=== PATIENT | male | born 1965 | race Caucasian/White ===

== ENCOUNTER 2017-06-12 09:44 | Emergency (ER) | payer SELFPAY ==
[2017-06-12 09:48] VITALS: BP 129/83; BMI 25.7
--- NOTE | 2017-06-12 10:02 | DR.CP ---
HPI - Time Seen Time seen: 10:00 - PCP Primary Care Physician: Klaus SIDDIQUI - HPI Comment HPI Comment: PAIN GETTING WORSE. PATIENT IS WEAK AND FATIGUE AND DENIES FEVER. NO DYSURIA, - Complaint Chief Complaint Doctor Comments: LEFT SIDED CHEST PAIN RADIATING TO LEFT ARM AND LT NECK TIMES 2 DAYS THAT IS INTERMITTENT. Chief Complaint:: PT. C/O LEFT SIDED CHEST PAIN WHICH BEGAN ON SATURDAY. PAIN GOT BETTER SATURDAY AFTERNOON AND STARTED AGAIN SATURDAY MORNING. PAIN RADIATES TO LEFT ARM AND UP LEFT SIDE OF NECK. PT. STATES THE PAIN WORSENS WHEN HE COUGHS. PT. DENIES INJURY. PT. HAS CHEST WALL TENDERNESS. - Reviewed Nurses Notes Review: Yes - Source History Provided: Patient - Mode of Arrival Mode of Arrival: Ambulatory - Timing Onset of Chief Complaint: 06/10/17 Came on: Suddenly - Duration Duration: Constant Duration: Days - Location Chest Pain Radiation Location: Left Jaw, Left Arm, Left Shoulder, Back - Context Onset: At rest, With light exertion Cardiac Risk Factors: Smoker PE Risk Factors: None History of: None - Quality Quality: Sharp - Severity Severity: Moderate - Modifying Factors Worsens: Exertion, Movement Impoves: Nothing - Associated Signs and Symptoms Associated Signs and Symptoms: Shortness of Breath PMH - PMH Past Medical History: No Past Surgical History: No Surgical History: No History - Family History History of Family Medical Conditions: Yes Family Medical History: Cancer, Hypertension - Social History Does patient currently use any type of tobacco product: Yes Have you used tobacco products in the last 12 months: Yes Type of Tobacco Use: Cigarettes Does any household member use tobacco: No Alcohol Use: Occasionally Do you use any recreational Drugs:: No Lives With: Spouse Lives Where: Home - infectious screening In the last 2 months have you had wt loss of >10#?: NO Have you had fever, night sweats or hemotysis?: No Have you traveled outside the country in the last 6 months?: No Isolation: Standard ROS - Review of Systems Constitutional: No Symptoms Reported. negative: Chills, Fever, Weakness, Fatigue Eyes: No Symptoms Reported. negative: Eye Pain, Discharge ENTM: Nose Congestion. negative: Ear Pain, Nose Discharge, Throat Pain Respiratoy: Productive Cough, Short of Breath, Wheezing. negative: Hemoptysis Cardiovascular: Chest Pain. negative: Edema, Palpitations Gastrointestinal/Abdominal: No Symptoms Reported. negative: Abdominal Pain, Nausea, Vomiting Genitourinary: No Symptoms Reported. negative: Dysuria, Frequency, Hematuria Neurological: Headache Musculoskeletal: Muscle Pain Integumentary: negative: Change in Color Hematologic/Lymphatic: No Symptoms Reported Endocrine: No Symptoms Reported All Other Systems: Reviewed and Negative PE - Vitals Vitals: Temperature 98.4 F Pulse Rate 89 Respiratory Rate 22 Blood Pressure [Right Arm] 138/79 Blood Pressure 129/83 O2 Sat by Pulse Oximetry 97 - General Limitations: No Limitations General Appearance: Alert - Head Head Exam: Normal Inspection - Eyes Eye exam: Normal Appearance - ENT ENT Exam: Normal External Ear Exam - Chest Chest Inspection: Symmetric Chest Wall Rise - Respiratory Respiratory Exam: Normal Lung Sounds Bilat, Chest Wall Tenderness Respiratory Exam: Bilateral Wheezing, Bilateral Rhonchi, Upper Rhonchi, Lower Wheezing, Lower Rhonchi - Cardiovascular Cardiovascular Exam: Regular Rate, Normal Rhythm, Normal Heart Sounds Pulse: Normal, Radial, Femoral Edema: Normal - Abdominal Exam Abdominal Exam: Normal Bowel Sounds, Soft. negative: Tenderness - Extremities Extremities Exam: Normal Inspection - Back Back Exam: Normal Inspection - Neurologic Neurological Exam: Alert, Oriented X3, CN II-XII Intact. negative: Motor Sensory Deficit - Psychiatric Psychiatric Exam: Normal Affect, Normal Mood - Skin Skin Exam: Normal Color MDM - Additional Information Additional Information Obtained From: Family - Differential Diagnosis Differential Diagnosis: Angina, Chest Wall Pain, Cholelithasis, CHF, Costochondritis, Esophageal Reflux/Spasm, Myocardial Infarction, Pericarditis, Pleuritis, Pancreatitis, Pneumonia, Pneumothorax Course - Treatment Treatment: SEE ORDERS. - Education/Counseling Education/Counseling: Patient, Education Educated On: Treatment, Diagnosis, Needs for Follow Up ROR - Labs Reviewed Laboratory Results Reviewed?: Yes Result Diagrams: 06/12/17 10:00 06/12/17 10:00 Laboratory: WBC 10.1 X10^3/uL (3.6-10.0) H 06/12/17 10:00 RBC 4.33 X10^6/uL (4.7-6.0) L 06/12/17 10:00 Hgb 14.6 g/dL (13.5-18.0) 06/12/17 10:00 Hct 41.0 % (42.0-54.0) L 06/12/17 10:00 MCV 94.7 fL (80.0-100.0) 06/12/17 10:00 MCH 33.6 pg (27.0-34.0) 06/12/17 10:00 MCHC 35.5 g/dL (33.0-35.0) H 06/12/17 10:00 RDW 12.8 % (11.6-16.5) 06/12/17 10:00 Plt Count 189 X10^3/uL (150.0-450.0) 06/12/17 10:00 Plt Count Comment Adequate (ADEQUATE) 06/12/17 10:00 MPV 8.6 fL (7.4-11.0) 06/12/17 10:00 Neut % (Auto) 63.9 % (42.0-75.0) 06/12/17 10:00 Lymph % (Auto) 21.2 % (21.0-51.0) 06/12/17 10:00 [place] % (Auto) 10.7 % (0.0-13.0) 06/12/17 10:00 Eos % (Auto) 3.3 % (0.9-2.9) H 06/12/17 10:00 Baso % (Auto) 0.9 % (0.2-1.0) 06/12/17 10:00 Neut # (Auto) 6.5 x10^3/uL (2.2-4.8) H 06/12/17 10:00 Lymph # (Auto) 2.1 X10^3/uL (1.3-2.9) 06/12/17 10:00 [place] # (Auto) 1.1 x10^3/uL (0.3-0.8) H 06/12/17 10:00 Eos # (Auto) 0.3 x10^3/uL (0.0-0.2) H 06/12/17 10:00 Baso # (Auto) 0.1 X10^3/uL (0.0-0.1) 06/12/17 10:00 Absolute Nucleated RBC 0.0 /100WBC 06/12/17 10:00 Total Counted 100 06/12/17 10:00 Neutrophils % (Manual) 78 % (39-76) H 06/12/17 10:00 Lymphocytes % (Manual) 17 % (13-43) 06/12/17 10:00 Monocytes % (Manual) 4 % (4-9) 06/12/17 10:00 Eosinophils % (Manual) 2 % (0-6) 06/12/17 10:00 Plt Morphology Comment Normal (NORMAL) 06/12/17 10:00 RBC Morphology Normal (NORMAL) 06/12/17 10:00 INR Target Range - 06/12/17 10:00 INR 0.93 (0.8-1.3) 06/12/17 10:00 APTT 30.9 SECONDS (22.9-36.5) 06/12/17 10:00 PTT Comment - 06/12/17 10:00 Sodium 133 mmol/L (136-145) L 06/12/17 10:00 Corrected Sodium 134 mmol/L (136-145) L 06/12/17 10:00 Potassium 4.4 mmol/L (3.5-5.1) 06/12/17 10:00 Chloride 99 mmol/L (98-107) 06/12/17 10:00 Carbon Dioxide 26.3 mmol/L (21-32) 06/12/17 10:00 BUN 13 mg/dL (7-18) 06/12/17 10:00 Creatinine 0.99 mg/dL (0.70-1.30) 06/12/17 10:00 Est GFR (MDRD) Af Amer > 60 (>60) 06/12/17 10:00 Est GFR (MDRD) Non-Af > 60 (>60) 06/12/17 10:00 Glucose 134 mg/dL (65-99) H 06/12/17 10:00 Calcium 9.1 mg/dL (8.5-10.1) 06/12/17 10:00 Corrected Calcium TNP 06/12/17 10:00 Total Bilirubin 0.50 mg/dL (0.2-1.0) 06/12/17 10:00 AST 25 Units/L (15-37) 06/12/17 10:00 ALT 32 Units/L (12-78) 06/12/17 10:00 Alkaline Phosphatase 99 Units/L (46-116) 06/12/17 10:00 Creatine Kinase 321 Units/L (39-308) H 06/12/17 10:00 CK-MB (CK-2) 3.3 ng/mL (0-4.0) 06/12/17 10:00 CK/CKMB % Calc 1.0 % (<4) 06/12/17 10:00 Troponin I < 0.02 ng/mL (0-1.5) 06/12/17 10:00 Total Protein 8.0 g/dL (6.4-8.2) 06/12/17 10:00 Albumin 3.8 g/dL (3.4-5.0) 06/12/17 10:00 Globulin 4.2 g/dL (2.5-4.5) 06/12/17 10:00 Albumin/Globulin Ratio 0.9 Ratio (1.1-2.1) L 06/12/17 10:00 - XRAY XRAY Interpreted by: Radiologist XRAY Findings: RETURN TO ED IF WORSE. - EKG Rhythm: NSR (EKG NOTED) - Diagnosis Discharge Problem: Bronchitis, Musculoskeletal pain Chest pain Qualifiers: Chest pain type: precordial pain Qualified Code(s): R07.2 - Precordial pain - Discharge Plan Disposition: HOME, SELF-CARE Condition: Stable Prescriptions: Azithromycin [ZITHROMAX Tab 250 mg *] 1 dose PO DAILY #6 tab Cyclobenzaprine HCl [FLEXERIL 10 MG *] 10 mg PO TID PRN #20 tab PRN Reason: Ibuprofen [MOTRIN TAB 800 MG *] 800 mg PO Q8H PRN #30 tab PRN Reason: Pain/Inflammation Tramadol HCl 50 mg PO Q8H #15 tablet - Follow ups/Referrals Follow ups/Referrals: MINNIE SIDDIQUI [Primary Care Provider] - 3 days - Instructions Instructions: Chest Wall Pain, [id number], Musculoskeletal Pain, Chest Pain Observation Additional Instructions: RETURN TO ED IF WORSE.
[2017-06-12 10:13] LABS: BASOPHILS # (AUTO) 0.1 X10^3/uL (0.0-0.1); BASOPHILS % (AUTO) 0.9 % (0.2-1.0); EOSINOPHILS # (AUTO) 0.3 x10^3/uL (0.0-0.2); EOSINOPHILS % (AUTO) 3.3 % (0.9-2.9); HEMOGLOBIN 14.6 g/dL (13.5-18.0); LYMPHOCYTES # (AUTO) 2.1 X10^3/uL (1.3-2.9); LYMPHOCYTES % (AUTO) 21.2 % (21.0-51.0); MEAN CORPUSCULAR HEMOGLOBIN 33.6 pg (27.0-34.0); MEAN CORPUSCULAR HGB CONC 35.5 g/dL (33.0-35.0); MEAN CORPUSCULAR VOLUME 94.7 fL (80.0-100.0); MEAN PLATELET VOLUME 8.6 fL (7.4-11.0); MONOCYTES # (AUTO) 1.1 x10^3/uL (0.3-0.8); MONOCYTES % (AUTO) 10.7 % (0.0-13.0); NEUTROPHILS # (AUTO) 6.5 x10^3/uL (2.2-4.8); NEUTROPHILS % (AUTO) 63.9 % (42.0-75.0); PLATELET COUNT 189 X10^3/uL (150.0-450.0); RED BLOOD COUNT 4.33 X10^6/uL (4.7-6.0); RED CELL DISTRIBUTION WIDTH 12.8 % (11.6-16.5); WHITE BLOOD COUNT 10.1 X10^3/uL (3.6-10.0)
--- NOTE | 2017-06-12 10:22 | RAD ---
Examination: Chest x-ray. Clinical History: Left-sided chest pain. Technique: PA and lateral views of the chest were obtained. Comparison: None available. Findings: The cardiac and mediastinal contours are within normal limits. No pneumothorax or pleural effusion is noted. The lungs appear clear. Degenerative changes are noted in the spine. No acute osseous abnormality is noted. Impression: 1. No acute disease. Reported By:
[2017-06-12] MEDS ORDERED: TORADOL 30 MG VIAL IVP ONE (10:24)
[2017-06-12] MEDS ORDERED: TORADOL 30 MG VIAL ONE (10:26)
[2017-06-12 10:31] LABS: BLOOD UREA NITROGEN 13 mg/dL (7-18); CALCIUM 9.1 mg/dL (8.5-10.1); CARBON DIOXIDE 26.3 mmol/L (21-32); CHLORIDE 99 mmol/L (98-107); COR NA(FOR HYPERGLY) 134 mmol/L (136-145); CREATININE 0.99 mg/dL (0.70-1.30); eGFR BLACK RACES > 60 (>60); eGFR NON BLACK RACES > 60 (>60)
[2017-06-12 10:34] LABS: SODIUM 133 mmol/L (136-145)
[2017-06-12 10:36] LABS: CREATINE KINASE 321 Units/L (39-308); CREATINE KINASE MB 3.3 ng/mL (0-4.0); TROPONIN I < 0.02 ng/mL (0-1.5)
[2017-06-12 10:50] LABS: PLATELET MORPHOLOGY COMMENT NORMAL (NORMAL)
[2017-06-12 12:04] LABS: ALANINE AMINOTRANSFERASE 32 Units/L (12-78); ALBUMIN 3.8 g/dL (3.4-5.0); ALKALINE PHOSPHATASE 99 Units/L (46-116); ASPARTATE AMINO TRANSFERASE 25 Units/L (15-37)
== END 2017-06-12 11:21 | disposition home or self-care (01) ==
LOC: ER 09:52
DX: J40 Bronchitis, not specified as acute or chronic (principal); M79.1 Myalgia; R07.2 Precordial pain
CPT/HCPCS: 36415; 71046; 80053; 82550; 82553; 84484; 85025; 85610; 85730; 93005; 93010; 96365; 96374; 99283; 99285; A4222; J1885